=== PATIENT | male | born 1950 | race Caucasian/White ===

== ENCOUNTER → 2017-03-13 | Outpatient (REF) ==
[~2017-03-13] MED LIST: ACTOS 45MG45 MG/TAB PO; ACTOS45 MG PO; ADVAIR DISKUS 51 DSK IH; AMBIEN CR 12.12.5 MG PO; AMBIEN CR12.5 MG PO; ASPIRIN 81M81 MG/TA2 PO; ASPIRIN E.C. 8181 MG PO; ASTELIN NASAL S34 ML NAS; ASTELIN NASAL S34 ML NS; BYETTA 10M600 MCG/SY SC; BYETTA250 MCG/ML SC; CARDI-OMEGA1000 MG PO; CARDIZEM CD 24240 MG PO; CATAPRES 0.1MG0.1 MG PO; CELEBREX 200MG200 MG PO; CIALIS20 MG PO; CORTISPORIN OTI10 M1 OT; CYANOCOBAL1000 MCG/1 IM; DEPO-TESTOS200 MG/M1 IM; DILTIAZEM240 M1 PO; DIOVAN320 MG PO; FLEXERIL 1010 MG/TAB PO; FLEXERIL5 MG PO; FLONASE0.05 MG/AC NS; FLONASEALLERGY NAS; FLONASEALLERGY NS; FORTAMET500 M1 PO; GABAPENTIN100 M1 PO; GENTAMICIN180 MG/502 NS; GINKGO PO; HCTZ 25MG TAB25 MG PO; HCTZ 25MG25 MG PO; IPRATROPIUM BROM3 M1 IH; K-TAB10 PO; KLOR-CON 1010 MEQ PO; LASIX 20MG TABL20 MG PO; MEDROL4 MG; METFORMIN HCL500 M1 PO; MULTIPLE VITAMI1 CAP PO; MULTIPLE VITAMI1 TA5 PO; NEURONTIN100 MG/CAP; NEURONTIN100 MG/CAP PO; NITROLINGU0.4 MG/ACT SL; NITROMIST0.4 MG/Act SL; NORCO 325 MG-51 TAB PO; NORVASC 10MG10 MG PO; OMNARIS50 MCG/Act NS; OMNICEF 300MG300 MG PO; POTASSIUM CL 220 MEQ PO; PREDNISONE10 MG PO; PROVENTIL0.09 MG/A1 IH; PROVENTIL0.09 MG/Ac IH; QUALITY CHOI500 U/GM TP; QUESTRAN PO; RT ADVAIR 528 DISKUS IH; RT ALBUTER2.5 MG/0.5 IH; SINGULAIR 110 MG/TAB PO; SINGULAIR10 MG PO; SYNTHROID 0.10.15 MG PO; SYNTHROID0.1 MG/TAB PO; TENORETIC 50 501 TAB PO; TENORMIN50 MG PO; TESTOSTERONE25 MG/ML IM; TUSS PO; ULTRAM 50MG TAB50 MG PO; UREA20% TP; VITAMIN B11000 MCG/M IM; VITAMIN D 50,1.25 MG PO; ZETIA 10MG TAB10 MG PO; ZITHROMAX500 M2 PO; ZOCOR 20MG20 MG PO; ZOCOR 80MG80 MG PO; ZOFRAN 4MG T4 MG/TAB PO; [UNRECOGNIZED DRUG - SUPPLY]
[2017-03-13 18:50] LABS: PSA-TOTAL 0.63 ng/mL (0-4)
[2017-03-13 19:56] LABS: THYROID STIMULATING HORMONE 2.19 uIU/mL (0.465-4.680)
== END ==
LOC: ZLAB.WCH 18:02
PROVIDERS: Internal Medicine
DX: Z01.89 Encounter for other specified special examinations (principal)
CPT/HCPCS: G0103

== ENCOUNTER → 2017-12-20 | Outpatient (REF) | LOC: ZLAB.WCH 16:06 | DX: Z01.89 Encounter for other specified special examinations (principal) ==

== ENCOUNTER 2018-04-03 09:11 | Inpatient (IN) | payer MEDICARE, OTHER ==
[~2018-04-03] VITALS: Wt 137.5 kg
[2018-04-29] VITALS (10 sets, daily range): BP systolic 139–210; BP diastolic 58–103; PULSE 63–88; TEMP 97.4–98.3
[2018-04-29] MEDS ORDERED: COLCRYS0.6 MG PO (09:03)
[2018-04-29 09:09] LABS: BASO # 0.1 (0.0-0.2); BASO % 0.7 % (0.0-2.0); EOS # 0.2 (0.0-0.7); EOS % 2.9 % (0-4.0); GRAN # 5.6 (1.4-6.5); GRAN % 72.5 % (42.2-75.2); HEMATOCRIT 41.5 % (42.0-52.0); HEMOGLOBIN 13.3 g/dl (13.5-18.0); LYMPH # 0.8 (1.2-3.4); MEAN CELL VOLUME 94 fl (80.0-100.0); MEAN CORPUSCULAR HEMOGLOBIN 30 pg (27.0-31.0); MEAN CORPUSCULAR HGB CONC 32 g/dl (33.0-37.0); MEAN PLATELET VOLUME 9.6 fl (7.4-10.4); MONO % 12.4 % (1.7-9.3); PLATELET COUNT 207 K/mm3 (130-400); RED BLOOD COUNT 4.41 M/mm3 (4.20-5.60)
[2018-04-29] MEDS ORDERED: VICTOZA6 MG/ML SQ (09:10)
[2018-04-29 09:16] LABS: INR 1.2 (0.8-3.0); PROTHROMBIN TIME 13.8 SECONDS (9.7-12.8)
[2018-04-29] MEDS ORDERED: COZAAR100 MG PO (09:18)
[2018-04-29] MEDS ORDERED: TOPROL XL100 MG PO (09:19)
[2018-04-29 09:20] LABS: ALBUMIN 3.2 gm/dL (3.5-5.0); BILIRUBIN,TOTAL 0.5 mg/dL (0.0-1.0); CALCIUM 8.4 mg/dL (8.4-10.2); CREATININE, serum 0.99 mg/dL (0.66-1.25); MAGNESIUM 1.6 mg/dL (1.6-2.3); POTASSIUM 4.2 mmol/L (3.4-5.0); TOTAL PROTEIN 6.2 gm/dL (6.4-8.2)
[2018-04-29] MEDS ORDERED: CATAPRES-TTS 20.2 M1 TD (09:20)
[2018-04-29] MEDS ORDERED: ELIQUIS 5MG PO (13:35)
[2018-04-30] VITALS (7 sets, daily range): BP systolic 141–183; BP diastolic 68–89; PULSE 70–85; TEMP 97.6–98.2
[2018-04-30 06:42] LABS: BASO # 0.1 (0.0-0.2); EOS # 0.3 (0.0-0.7); GRAN # 3.8 (1.4-6.5); GRAN % 65.7 % (42.2-75.2); HEMATOCRIT 37.9 % (42.0-52.0); HEMOGLOBIN 11.8 g/dl (13.5-18.0); LYMPH # 0.8 (1.2-3.4); LYMPH % 13.3 % (20.0-51.0); MEAN CELL VOLUME 97 fl (80.0-100.0); MEAN CORPUSCULAR HEMOGLOBIN 30 pg (27.0-31.0); MEAN CORPUSCULAR HGB CONC 31 g/dl (33.0-37.0); MEAN PLATELET VOLUME 10.1 fl (7.4-10.4); MONO # 0.9 (0.1-0.6); MONO % 14.5 % (1.7-9.3); PLATELET COUNT 203 K/mm3 (130-400)
[2018-04-30 06:51] LABS: CALCIUM 7.8 mg/dL (8.4-10.2); CREATININE, serum 0.96 mg/dL (0.66-1.25); MAGNESIUM 1.6 mg/dL (1.6-2.3); POTASSIUM 4.2 mmol/L (3.4-5.0)
[2018-05-01 01:43] VITALS: BP 140/80; PULSE 77; TEMP 98.2
[2018-05-01 03:25] VITALS: BP 148/75; PULSE 63; TEMP 98.6
[2018-05-01 06:05] LABS: BASO # 0.1 (0.0-0.2); BASO % 0.8 % (0.0-2.0); EOS # 0.3 (0.0-0.7); EOS % 4.4 % (0-4.0); GRAN # 4.1 (1.4-6.5); GRAN % 64.3 % (42.2-75.2); HEMATOCRIT 38.6 % (42.0-52.0); HEMOGLOBIN 12.1 g/dl (13.5-18.0); LYMPH # 0.9 (1.2-3.4); LYMPH % 14.6 % (20.0-51.0); MEAN CELL VOLUME 95 fl (80.0-100.0); MEAN CORPUSCULAR HEMOGLOBIN 30 pg (27.0-31.0); MEAN CORPUSCULAR HGB CONC 31 g/dl (33.0-37.0); MONO % 15.4 % (1.7-9.3); PLATELET COUNT 198 K/mm3 (130-400); RED BLOOD COUNT 4.05 M/mm3 (4.20-5.60); REDCELL DISTRIBUTION WIDTH-CV 14.7 % (11.5-14.5)
[2018-05-01 06:10] LABS: CREATININE, serum 1.03 mg/dL (0.66-1.25); MAGNESIUM 1.7 mg/dL (1.6-2.3)
[2018-05-01 08:44] VITALS: BP 178/90; PULSE 73; TEMP 97.9
[2018-05-01] MEDS ORDERED: BETAPACE 80MG80 MG PO (11:06)
[2018-05-01] MEDS ORDERED: CEPHALEXIN500 M1 PO (11:09)
== END 2018-05-01 14:11 | disposition home or self-care (01) | DRG 261 ==
LOC: MEDICAL 04-29 08:22
PROVIDERS: Internal Medicine Cardiovascular Disease; Nurse Practitioner
PROC: 0JPT02Z Removal of Monitoring Device from Trunk Subcutaneous Tissue and Fascia, Open Approach (ICD-10-PCS; principal; 2018-04-29)
PROC: 0JH602Z Insertion of Monitoring Device into Chest Subcutaneous Tissue and Fascia, Open Approach (ICD-10-PCS; 2018-04-29)
DX: I48.0 Paroxysmal atrial fibrillation (principal); Z68.41 Body mass index [BMI] 40.0-44.9, adult; I10 Essential (primary) hypertension; J44.9 Chronic obstructive pulmonary disease, unspecified; E66.01 Morbid (severe) obesity due to excess calories
CPT/HCPCS: C1764; J0690; J2250; J3010

== ENCOUNTER → 2018-05-28 | Outpatient (REF) ==
[~2018-05-28] MED LIST changes: +ALDACTONE 25MG25 M1 PO; +BETAPACE 80MG80 MG PO; +CATAPRES-TTS 20.2 M1 TD; +CATAPRES-TTS 30.3 MG TD; +CEPHALEXIN500 M1 PO; +COLCRYS0.6 MG PO; +COZAAR100 MG PO; +ELIQUIS 5MG PO; +RT ADVAIR 228 DISKUS IH; +TIKOSYN0.5 MG PO; +TOPROL XL100 MG PO; +VICTOZA6 MG/ML SQ
[2018-05-28 10:12] LABS: PSA-TOTAL 0.53 ng/mL (0-4)
[2018-05-28 10:20] LABS: THYROID STIMULATING HORMONE 1.89 uIU/mL (0.465-4.680)
== END ==
LOC: ZLAB.WCH 09:07
PROVIDERS: Internal Medicine
DX: Z01.89 Encounter for other specified special examinations (principal)
CPT/HCPCS: G0103

== ENCOUNTER → 2018-10-25 | Outpatient (REF) | LOC: ZLAB.WCH 15:50 | DX: Z01.89 Encounter for other specified special examinations (principal) ==

== ENCOUNTER → 2018-11-26 | Outpatient (REF) | LOC: ZLAB.WCH 17:42 | DX: Z01.89 Encounter for other specified special examinations (principal) ==

== ENCOUNTER → 2019-02-19 | Outpatient (CLI) | payer MEDICARE, OTHER | LOC: COL.VAS 11:59 | DX: I10 Essential (primary) hypertension (principal) ==

== ENCOUNTER → 2019-02-24 | Outpatient (CLI) | payer MEDICARE, OTHER ==
[2019-02-24 13:41] LABS: CALCIUM 9.1 mg/dL (8.4-10.2); CREATININE, serum 1.41 (0.66-1.25); POTASSIUM 4.5 mmol/L (3.4-5.0)
== END ==
LOC: COL.RAD 13:03
PROVIDERS: Internal Medicine
DX: I10 Essential (primary) hypertension (principal); E11.9 Type 2 diabetes mellitus without complications; N28.9 Disorder of kidney and ureter, unspecified; I87.2 Venous insufficiency (chronic) (peripheral)
CPT/HCPCS: Q9967

== ENCOUNTER → 2019-10-14 | Outpatient (CLI) | payer MEDICARE, OTHER ==
[~2019-10-14] MED LIST changes: +TRULICITY1.5 MG/0.5 SQ; +ZYLOPRIM 100MG100 MG PO
--- NOTE | 2019-10-14 13:18 | NUR ---
pt forgot and took eliquis today. procedure rescheduled to sunday10/20/19 at 1300
== END ==
LOC: COL.RAD 12:17
DX: M48.061 Spinal stenosis, lumbar region without neurogenic claudication (principal)

== ENCOUNTER 2019-10-20 12:35 | Outpatient (CLI) | payer MEDICARE, OTHER ==
[~2019-10-20] VITALS: Ht 182.9 cm; Wt 139.4 kg
[~2019-10-20 12:35] MED LIST changes: -TRULICITY1.5 MG/0.5 SQ; -ZYLOPRIM 100MG100 MG PO
[2019-10-20] MEDS ORDERED: ZYLOPRIM 100MG100 MG PO (13:03)
[2019-10-20] MEDS ORDERED: TRULICITY1.5 MG/0.5 SQ (13:13)
[2019-10-20 13:14] VITALS: BP 201/103; PULSE 65
[2019-10-20 13:50] VITALS: BP 167/81; PULSE 59
[2019-10-20 14:10] VITALS: BP 148/77; PULSE 49
[2019-10-20 14:25] VITALS: BP 147/79; PULSE 80
[2019-10-20 14:40] VITALS: BP 152/78; PULSE 60
--- NOTE | 2019-10-20 15:54 | NUR ---
Discharge instructions given to pt.pt verbalizes understanding.
--- NOTE | 2019-10-20 16:14 | NUR ---
Pt escorted out via wheelchair by this nurse.
== END 2019-10-20 16:20 | disposition home or self-care (01) ==
LOC: COL.RAD 12:35
DX: M48.061 Spinal stenosis, lumbar region without neurogenic claudication (principal)
CPT/HCPCS: Q9965

== ENCOUNTER 2020-11-02 08:07 | Day surgery (SDC) | payer MEDICARE, OTHER ==
[~2020-11-02] VITALS: Ht 182.9 cm; Wt 124.8 kg
[2020-11-02] VITALS (11 sets, daily range): BP systolic 152–217; BP diastolic 59–117; PULSE 60–81; TEMP 97.2–98
[~2020-11-02 08:07] MED LIST changes: +LASIX 80MG TABL80 MG PO; +TRULICITY1.5 MG/0.5 SQ; +ZYLOPRIM 100MG100 MG PO
[2020-11-02 09:48] LABS: MEAN CELL VOLUME 101 fl (80.0-100.0); MEAN CORPUSCULAR HGB CONC 33 g/dl (33.0-37.0); MEAN PLATELET VOLUME 9.9 fl (7.4-10.4); PLATELET COUNT 227 K/mm3 (130-400); RED BLOOD COUNT 2.96 M/mm3 (4.20-5.60); REDCELL DISTRIBUTION WIDTH-CV 13.6 % (11.5-14.5)
[2020-11-02 09:50] LABS: HEMOGLOBIN 9.9 g/dl (13.5-18.0); MEAN CORPUSCULAR HEMOGLOBIN 33 pg (27.0-31.0)
[2020-11-02 09:51] LABS: HEMATOCRIT 29.9 % (42.0-52.0)
[2020-11-02 09:58] LABS: CALCIUM 9.5 mg/dL (8.4-10.2); CREATININE, serum 2.13 (0.66-1.25); POTASSIUM 4.5 mmol/L (3.4-5.0)
[2020-11-02 10:02] LABS: PROTHROMBIN TIME 11.1 SECONDS (9.7-12.8)
[2020-11-02] MEDS ORDERED: RT ADVAIR 228 DISKUS IH (10:13)
[2020-11-02] MEDS ORDERED: ZEBETA 5MG5 MG PO (10:22)
[2020-11-02] MEDS ORDERED: ZYRTEC 10MG10 MG PO (10:31)
[2020-11-02] MEDS ORDERED: COLESTID 1GM1 G PO (10:33)
[2020-11-02] MEDS ORDERED: VITAMIN B11000 MCG/M IM (10:33)
[2020-11-02] MEDS ORDERED: CARDIZEM CD 24240 MG PO (10:34)
[2020-11-02] MEDS ORDERED: NITROGLYCE0.4 MG/Ac2 TL (10:40)
[2020-11-02] MEDS ORDERED: SINGULAIR 110 MG/TAB PO (10:40)
[2020-11-02] MEDS ORDERED: DEPO-TESTOS100 MG/ML IM (10:43)
[2020-11-02] MEDS ORDERED: ULTRAM 50MG TAB50 MG PO (10:43)
[2020-11-02] MEDS ORDERED: AMOXICILLIN 50500 MG PO (10:44)
--- NOTE | 2020-11-02 11:36 | NUR ---
SEE MERGE DOCUMENTATION FOR MEDICATION ADMINISTRATION AND INTRA/POST PROCEDURE SEDATION ASSESMENTS.
--- NOTE | 2020-11-02 18:43 | NUR ---
Patient alert and cooperative on floor. Verbalizes understanding of all precautions discussed. Was able to get up and ambulate with standby assist and has eaten 100% of meals. records pain at 3/10 but declines any interventions. No other needs at this time.
--- NOTE | 2020-11-02 19:00 | NUR ---
Received report from Debora. Seen patient awake, sitting in bed. He has left arm sling. Dressing on his pacemaker site is clean, dry and intact. Call light within reach.
--- NOTE | 2020-11-02 20:20 | NUR ---
Assesment done. Applied new ice pack on his left chest. He denies pain but reports discomfort on his pacemaker site. He refuses pain medicine and states it's tolerable. Informed him to maintain his ice pack to help relieve with the discomfort. Lungs are clear. Call light within reach.
[2020-11-03 02:59] VITALS: BP 162/78; PULSE 66; TEMP 98.1
--- NOTE | 2020-11-03 06:04 | NUR ---
Patient had uneventful night. He was using his bipap while asleep. Ice pack was replaced frequently. His pacemaker site dressing is clean, dry and intact. He reports pain on the site this morning with pain score of 4/10. Celebrex was given. Maintained arm sling.
[2020-11-03 06:23] LABS: BASO # 0.1 (0.0-0.2); BASO % 0.9 % (0.0-2.0); EOS # 0.2 (0.0-0.7); EOS % 3.5 % (0-4.0); GRAN # 4.3 (1.4-6.5); GRAN % 67.5 % (42.2-75.2); LYMPH # 0.8 (1.2-3.4); LYMPH % 12.4 % (20.0-51.0); MEAN CELL VOLUME 104 fl (80.0-100.0); MEAN CORPUSCULAR HGB CONC 31 g/dl (33.0-37.0); MEAN PLATELET VOLUME 10.1 fl (7.4-10.4); MONO % 15.1 % (1.7-9.3); PLATELET COUNT 214 K/mm3 (130-400); RED BLOOD COUNT 2.78 M/mm3 (4.20-5.60); REDCELL DISTRIBUTION WIDTH-CV 13.5 % (11.5-14.5)
[2020-11-03 06:24] LABS: HEMOGLOBIN 9.1 g/dl (13.5-18.0); MEAN CORPUSCULAR HEMOGLOBIN 33 pg (27.0-31.0)
[2020-11-03 06:38] LABS: ALBUMIN 3.1 gm/dL (3.5-5.0); BILIRUBIN,TOTAL 0.3 mg/dL (0.0-1.0); CALCIUM 8.8 mg/dL (8.4-10.2); CREATININE, serum 2.4 (0.66-1.25); POTASSIUM 4.4 mmol/L (3.4-5.0); TOTAL PROTEIN 6.1 gm/dL (6.4-8.2)
[2020-11-03 07:37] VITALS: BP 197/78; PULSE 64; TEMP 97.3
--- NOTE | 2020-11-03 07:50 | NUR ---
Shift assessment complete. Sitting on side of bed finishing breakfast upon entry. NC at 3 lpm O2, reports baseline. Heart RRR. Lungs CTA. A&Ox4. Moderate pain to incision site, reports adequate relief from tramadol. Left chest incisions covered by gauze and paper tape, CDI. Denies needs. Call light in reach.
[2020-11-03 09:34] VITALS: BP 183/84
--- NOTE | 2020-11-03 09:45 | NUR ---
Initial visit; Patient thanked Step Down Nurse for looking in on him. He is doing well and will be discharged soon.
--- NOTE | 2020-11-03 09:57 | NUR ---
and KAMRAN Starks notified pt's BP 183/84. Stated will continue to monitor for now.
[2020-11-03] MEDS ORDERED: CEPHALEXIN500 M1 PO (10:41)
--- NOTE | 2020-11-03 12:55 | NUR ---
D/C teaching discussed w/pt and . All questions answered. INT to left wrist removed w/o s/s complication. Pt off unit via WC w/ and medical community resource consultant at this time, all belongings in tow.
== END 2020-11-03 12:56 | disposition home or self-care (01) ==
LOC: COL.CAR 08:07 → MEDICAL 14:32 → COL.CAR 11-03 12:56
PROVIDERS: Internal Medicine Cardiovascular Disease
DX: I49.5 Sick sinus syndrome (principal); I48.0 Paroxysmal atrial fibrillation; G89.29 Other chronic pain; E78.2 Mixed hyperlipidemia; E11.9 Type 2 diabetes mellitus without complications; I87.2 Venous insufficiency (chronic) (peripheral); G47.33 Obstructive sleep apnea (adult) (pediatric); J43.9 Emphysema, unspecified; E11.21 Type 2 diabetes mellitus with diabetic nephropathy; M19.90 Unspecified osteoarthritis, unspecified site; G47.30 Sleep apnea, unspecified; Z88.8 Allergy status to other drugs, medicaments and biological substances; Z79.899 Other long term (current) drug therapy; Z79.82 Long term (current) use of aspirin; Z20.822 Contact with and (suspected) exposure to COVID-19; Z95.818 Presence of other cardiac implants and grafts; Z99.89 Dependence on other enabling machines and devices; Z79.01 Long term (current) use of anticoagulants; Z79.84 Long term (current) use of oral hypoglycemic drugs; Z79.890 Hormone replacement therapy
CPT/HCPCS: OP; C1769; C1785; C1887; C1894; C1898; J0690; J2250; J2405; J3010; J7030

== ENCOUNTER 2020-11-17 12:55 | Day surgery (SDC) | payer MEDICARE, OTHER ==
[2020-11-17] VITALS (9 sets, daily range): BP systolic 143–192; BP diastolic 54–90; PULSE 48–64; TEMP 97.7–98.5
[~2020-11-17] VITALS: Ht 180.3 cm; Wt 129.5 kg
[~2020-11-17 12:55] MED LIST changes: +AMOXICILLIN 50500 MG PO; +COLESTID 1GM1 G PO; +DEPO-TESTOS100 MG/ML IM; +NITROGLYCE0.4 MG/Ac2 TL; +ZEBETA 5MG5 MG PO; +ZYRTEC 10MG10 MG PO
[2020-11-17 14:13] LABS: PROTHROMBIN TIME 10.7 SECONDS (9.7-12.8)
[2020-11-17 14:14] LABS: CALCIUM 8.2 mg/dL (8.4-10.2); CREATININE, serum 2.05 (0.66-1.25); POTASSIUM 4.8 mmol/L (3.4-5.0)
[2020-11-17 14:35] LABS: MEAN CELL VOLUME 102 fl (80.0-100.0); MEAN CORPUSCULAR HGB CONC 33 g/dl (33.0-37.0); MEAN PLATELET VOLUME 10.5 fl (7.4-10.4); PLATELET COUNT 260 K/mm3 (130-400); RED BLOOD COUNT 2.83 M/mm3 (4.20-5.60); REDCELL DISTRIBUTION WIDTH-CV 13.8 % (11.5-14.5)
[2020-11-17 14:36] LABS: HEMATOCRIT 28.9 % (42.0-52.0); HEMOGLOBIN 9.5 g/dl (13.5-18.0); MEAN CORPUSCULAR HEMOGLOBIN 34 pg (27.0-31.0)
--- NOTE | 2020-11-17 16:08 | NUR ---
pt arrived to floor, pt concerned about eating, pt assessed, pt has generalized edema, red ble, pt on 2l satting 100%, on 3l at home, will discuss with cardiology due to pt history of copd, admission assessment performed, pt reports 4/10 pain in back, ice pack placed on l chest site, pulses strong
[2020-11-17] MEDS ORDERED: TIKOSYN0.125 MG PO (16:40)
[2020-11-17] MEDS ORDERED: LASIX 40MG TABL40 MG PO (16:41)
[2020-11-17] MEDS ORDERED: ZETIA 10MG TAB10 MG PO (16:41)
--- NOTE | 2020-11-17 18:03 | NUR ---
PT DISCONNECTED FROM POST OP VITALS, PRESSURES IN 150-160'S SYSTOLIC, PT OVERALL VERY PLEASANT, REPORTS DISCOMFORT FROM ARTHRITIS, ICE PACK ON LCHEST, PT DC FROM PRE OP FLUIDS, WILL START LASIX TOMORROW AND BP MEDS TOMORROW, NO OTHER NEEDS.
--- NOTE | 2020-11-17 18:10 | NUR ---
PT REQUESTED A WALKER, SOCIAL WORK REFERRAL PLACED
--- NOTE | 2020-11-17 21:05 | NUR ---
I rec[facility] Patient was sitting at the side of the bed speaking to family on the phone. He denies pain, denies shortness of breath, denies nausea. He has no complaints. He is very delightful and very positive. His oxygen saturation is 96 on 2L NC and he stated he is feeling comfortable.
[2020-11-18 04:51] VITALS: BP 161/75; PULSE 59; TEMP 97.6
[2020-11-18 06:36] LABS: BASO # 0.1 (0.0-0.2); BASO % 0.6 % (0.0-2.0); EOS # 0.4 (0.0-0.7); EOS % 5.1 % (0-4.0); GRAN # 5.3 (1.4-6.5); GRAN % 67.9 % (42.2-75.2); LYMPH # 1.1 (1.2-3.4); LYMPH % 13.8 % (20.0-51.0); MEAN CORPUSCULAR HGB CONC 31 g/dl (33.0-37.0); MEAN PLATELET VOLUME 10.4 fl (7.4-10.4); MONO # 0.9 (0.1-0.6); PLATELET COUNT 234 K/mm3 (130-400); RED BLOOD COUNT 3.01 M/mm3 (4.20-5.60); REDCELL DISTRIBUTION WIDTH-CV 13.9 % (11.5-14.5)
[2020-11-18 06:46] LABS: CALCIUM 8.3 mg/dL (8.4-10.2); CREATININE, serum 2.05 (0.66-1.25); POTASSIUM 4.6 mmol/L (3.4-5.0)
[2020-11-18 06:50] LABS: HEMATOCRIT 32.4 % (42.0-52.0); HEMOGLOBIN 9.9 g/dl (13.5-18.0); MEAN CELL VOLUME 108 fl (80.0-100.0); MEAN CORPUSCULAR HEMOGLOBIN 33 pg (27.0-31.0)
[2020-11-18 07:11] VITALS: BP 130/71; PULSE 61; TEMP 97.4
[2020-11-18 08:20] VITALS: BP 163/74; PULSE 75; TEMP 98
--- NOTE | 2020-11-18 08:30 | NUR ---
PT PLEASANT, AOX4, REPORTS PAIN 5/10, ICE PACK PLACED ON L CHEST PACER SITE. PACEMAKER DOWNLOADED AND REPORT PLACED ON CHART, VITALS REVIWED, ASSESSMENT PERFORMED, FRESH ICE WATER BROUGHT IN, CALL LIGHT AT BEDSIDE, PT EAGER FOR DISCHARGE.
[2020-11-18] MEDS ORDERED: CEPHALEXIN500 M1 PO (10:24)
[2020-11-18 12:50] VITALS: BP 178/79; PULSE 72; TEMP 97.5
--- NOTE | 2020-11-18 13:08 | NUR ---
when obtaining vital signs and BS a hematoma was noted above pacer site. site was soft, called kelvin angeles about hematoma and high bp. clonidine given and ice placed on hematoma site. will watch for a couple hours to determine if site is actively bleeding. in room at bedside.
--- NOTE | 2020-11-18 14:03 | NUR ---
HEMATOMA APPEARS TO HAVE GONE DOWN IN HEIGHT AND APPEARS TO HAVE SPREAD BACK TO THE SHOULDER SOME.
--- NOTE | 2020-11-18 14:07 | NUR ---
Primary nurse was assisted with [id number] patient care by [employer] student Maribell Rivero and [employer] instructor Katherine Redding MSN, RN.
--- NOTE | 2020-11-18 14:45 | NUR ---
assessed hematoma, appears the same size no changes, notified bridgette warren of cardiology. stable for discharge, holding eliquis until sunday, aspirin ok per cardiology instruction. discharge instructions given, educated on shower safety with pacer site, educated on movement restriction with L arm, educated on s/s of infection, educated on antibiotic administration and side effects. IV removed from LW. no other needs.
--- NOTE | 2020-11-18 15:28 | NUR ---
Assistant Store Manager Operations met with patient to discuss discharge planning. Patient lives in [place] with his , Alesha and sees Dr. Acosta for primary care. Patient states he has an appointment with Dr. Acosta next week. Patient obtains most medications from [facility], which are mailed to his home. Patient also utilizes [facility] as needed. Patient has a rollator, cane, and wheelchair at home. Patient reports independence with ADLS and plans to return home upon discharge, which will be this afternoon. Patient is interested in obtaining a front wheeled walker. SW contacted KAMRAN Lock who advised Dr. Montgomery would like patient to follow up with Dr. Acosta for the walker if he is stable for discharge. Patient is agreeable to this plan. Discharge Plan: Home with .
== END 2020-11-18 15:15 | disposition home or self-care (01) ==
LOC: EU 12:55 → UNDOADMOB 12:55 → SDCO 12:55 → MEDICAL 16:09 → EU 16:09 → MEDICAL 11-18 15:15 → SDCO 11-18 15:15
PROVIDERS: Internal Medicine Cardiovascular Disease
DX: T82.110A Breakdown (mechanical) of cardiac electrode, initial encounter (principal); I48.0 Paroxysmal atrial fibrillation; G89.29 Other chronic pain; I87.2 Venous insufficiency (chronic) (peripheral); I10 Essential (primary) hypertension; I49.5 Sick sinus syndrome; G47.33 Obstructive sleep apnea (adult) (pediatric); E66.01 Morbid (severe) obesity due to excess calories; M19.90 Unspecified osteoarthritis, unspecified site; J43.9 Emphysema, unspecified; E11.40 Type 2 diabetes mellitus with diabetic neuropathy, unspecified; E07.9 Disorder of thyroid, unspecified; E78.2 Mixed hyperlipidemia; Z95.818 Presence of other cardiac implants and grafts; Z99.89 Dependence on other enabling machines and devices; Z88.8 Allergy status to other drugs, medicaments and biological substances; Z79.82 Long term (current) use of aspirin; Z79.899 Other long term (current) drug therapy; Z79.890 Hormone replacement therapy; Z79.52 Long term (current) use of systemic steroids; Z79.01 Long term (current) use of anticoagulants
CPT/HCPCS: J0690; J2250; J3010; J7030

== ENCOUNTER 2020-11-26 13:31 | Emergency (ER) | payer MEDICARE, OTHER ==
[~2020-11-26] VITALS: Ht 180.3 cm; Wt 128.6 kg
[~2020-11-26 13:31] MED LIST changes: +LASIX 40MG TABL40 MG PO; +TIKOSYN0.125 MG PO
[2020-11-26 13:39] VITALS: TEMP 97.9
[2020-11-26 14:36] LABS: BASO # 0.1 (0.0-0.2); BASO % 0.9 % (0.0-2.0); EOS # 0.3 (0.0-0.7); EOS % 2.9 % (0-4.0); GRAN # 6.6 (1.4-6.5); HEMATOCRIT 32.7 % (42.0-52.0); HEMOGLOBIN 10.5 g/dl (13.5-18.0); LYMPH # 0.8 (1.2-3.4); MEAN CELL VOLUME 102 fl (80.0-100.0); MEAN CORPUSCULAR HEMOGLOBIN 33 pg (27.0-31.0); MEAN CORPUSCULAR HGB CONC 32 g/dl (33.0-37.0); MEAN PLATELET VOLUME 9.5 fl (7.4-10.4); MONO # 1.2 (0.1-0.6); MONO % 13.6 % (1.7-9.3); PLATELET COUNT 283 K/mm3 (130-400); REDCELL DISTRIBUTION WIDTH-CV 13.2 % (11.5-14.5)
[2020-11-26 14:41] LABS: ALBUMIN 3.5 gm/dL (3.5-5.0); BILIRUBIN,TOTAL 0.3 mg/dL (0.0-1.0); CALCIUM 9.2 mg/dL (8.4-10.2); CREATININE, serum 2.16 (0.66-1.25); TOTAL PROTEIN 6.9 gm/dL (6.4-8.2)
[2020-11-26 14:58] LABS: TROPONIN-I 0.037 ng/mL (0.000-0.035)
[2020-11-26 16:19] VITALS: BP 171/90; PULSE 81
== END 2020-11-26 15:50 | disposition home or self-care (01) ==
LOC: COL.ER 13:31
PROVIDERS: Physician Assistant
DX: R22.32 Localized swelling, mass and lump, left upper limb (principal); E11.9 Type 2 diabetes mellitus without complications; I10 Essential (primary) hypertension; I48.91 Unspecified atrial fibrillation; J44.9 Chronic obstructive pulmonary disease, unspecified; E78.5 Hyperlipidemia, unspecified; G47.33 Obstructive sleep apnea (adult) (pediatric); E66.01 Morbid (severe) obesity due to excess calories; Z88.8 Allergy status to other drugs, medicaments and biological substances; Z95.0 Presence of cardiac pacemaker; Z79.84 Long term (current) use of oral hypoglycemic drugs; Z79.51 Long term (current) use of inhaled steroids; Z79.82 Long term (current) use of aspirin; Z79.01 Long term (current) use of anticoagulants; Z79.899 Other long term (current) drug therapy

== ENCOUNTER → 2021-03-11 | Outpatient (CLI) | payer MEDICARE, OTHER | LOC: COL.RAD 08:59 | DX: M25.561 Pain in right knee (principal); M25.562 Pain in left knee | CPT/HCPCS: A9503 ==

== ENCOUNTER 2022-01-06 16:29 | Observation (INO) | payer MEDICARE, OTHER ==
[~2022-01-06] VITALS: Ht 182.9 cm; Wt 124.3 kg
[2022-01-06 17:59] LABS: BASO # 0.1 K/mm3 (0.0-0.2); BASO % 0.8 % (0.0-2.0); EOS # 0.2 K/mm3 (0.0-0.7); EOS % 2.2 % (0.0-4.0); GRAN # 5.8 K/mm3 (1.4-6.5); GRAN % 75.1 % (42.2-75.2); LYMPH # 0.7 K/mm3 (1.2-3.4); LYMPH % 8.6 % (20.0-51.0); MEAN CELL VOLUME 92 fl (80.0-100.0); MEAN CORPUSCULAR HGB CONC 33 g/dl (33.0-37.0); MEAN PLATELET VOLUME 9.7 fl (7.4-10.4); MONO % 12.9 % (1.7-9.3); PLATELET COUNT 228 K/mm3 (130-400); RED BLOOD COUNT 3.19 M/mm3 (4.20-5.60); REDCELL DISTRIBUTION WIDTH-CV 14.7 % (11.5-14.5)
[2022-01-06 18:00] LABS: HEMATOCRIT 29.3 % (42.0-52.0); HEMOGLOBIN 9.6 g/dl (13.5-18.0); MEAN CORPUSCULAR HEMOGLOBIN 30 pg (27-31)
[2022-01-06 18:16] LABS: ALBUMIN 3.2 gm/dL (3.4-4.8); BILIRUBIN,TOTAL 0.4 mg/dL (0.2-1.2); CALCIUM 9.1 mg/dL (8.4-10.2); CREATININE, serum 4.67 mg/dL (0.72-1.25); POTASSIUM 5.2 mmol/L (3.5-4.5); TOTAL PROTEIN 6.8 gm/dL (6.2-8.1)
[2022-01-06 19:11] LABS: COLLECTION METHOD CLEAN CATCH
[2022-01-06 19:17] LABS: PH 6 (5-8); SQUAMOUS EPITHELIAL None Seen /hpf (0-10); URINE APPEARANCE Clear (CLEAR/HAZY); URINE BACTERIA None Seen /hpf (NONE SEEN); URINE BILIRUBIN Negative (NEGATIVE); URINE BLOOD Negative (NEGATIVE); URINE COLOR Straw (YELLOW); URINE GLUCOSE 3+ (NEGATIVE); URINE KETONE Negative (NEGATIVE); URINE LEUKOCYTE ESTERASE Negative (NEGATIVE); URINE NITRATE Negative (NEGATIVE); URINE PROTEIN(semi-quant) 2+ (NEGATIVE); URINE RBC None Seen /hpf (0-2); URINE UROBILINOGEN Negative (NEGATIVE)
[2022-01-06] MEDS ORDERED: LASIX 40MG TABL40 MG PO (22:15)
[2022-01-06] MEDS ORDERED: ULTRAM 50MG TAB50 MG PO (22:16)
[2022-01-06] MEDS ORDERED: ZETIA 10MG TAB10 MG PO (22:16)
[2022-01-06] MEDS ORDERED: RT ADVAIR 228 DISKUS IH (22:24)
[2022-01-06] MEDS ORDERED: TIKOSYN0.125 MG PEG (23:30)
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
[2022-01-07 00:36] VITALS: BP 165/84; PULSE 75; TEMP 97.5
[2022-01-07 03:41] VITALS: BP 155/77; PULSE 73; TEMP 98.2
--- NOTE | 2022-01-07 05:21 | NUR ---
PT. SPENT THE NIGHT SLEEPING. NO NEEDS THROUGHOUT THE NIGHT.
[2022-01-07 06:46] LABS: BASO # 0.1 K/mm3 (0.0-0.2); BASO % 0.7 % (0.0-2.0); EOS # 0.4 K/mm3 (0.0-0.7); GRAN # 4.9 K/mm3 (1.4-6.5); GRAN % 67.1 % (42.2-75.2); LYMPH # 0.9 K/mm3 (1.2-3.4); LYMPH % 11.7 % (20.0-51.0); MEAN CELL VOLUME 93 fl (80.0-100.0); MEAN CORPUSCULAR HGB CONC 32 g/dl (33.0-37.0); MONO # 1.1 K/mm3 (0.1-0.6); MONO % 15.2 % (1.7-9.3); PLATELET COUNT 247 K/mm3 (130-400); RED BLOOD COUNT 3.35 M/mm3 (4.20-5.60); REDCELL DISTRIBUTION WIDTH-CV 14.6 % (11.5-14.5)
[2022-01-07 06:56] LABS: HEMOGLOBIN 9.9 g/dl (13.5-18.0); MEAN CORPUSCULAR HEMOGLOBIN 30 pg (27-31)
[2022-01-07 07:08] LABS: CALCIUM 9.5 mg/dL (8.4-10.2); CREATININE, serum 3.96 mg/dL (0.72-1.25); POTASSIUM 4.5 mmol/L (3.5-4.5)
[2022-01-07 08:00] VITALS: BP 147/58; PULSE 88; TEMP 97.8
[2022-01-07 11:36] VITALS: BP 145/67; PULSE 79; TEMP 98
--- NOTE | 2022-01-07 12:16 | NUR ---
Initial visit; Patient thanked Chaplaalexandria for stopping by his room and letting him know of the availability of Spiritual Care at our hospital. Patient was with Physical Therapist just coming into his room so Chaplian wished him well and God's blessings.
--- NOTE | 2022-01-07 13:34 | NUR ---
Received report from night supervisor. Patient alert and oriented x3. VSS. Patient denies any pain at this time. Assessment performed. Am meds administered. Patient on 3L NC. Patient on 1500 FR. Patient aware of FR and keeping track. IV to R AC flushes well. Call light within reach.
[2022-01-07 15:57] VITALS: BP 137/78; PULSE 80; TEMP 97.8
--- NOTE | 2022-01-07 17:55 | NUR ---
Patient reports pain in lower back and hip, requests tylenol and flexeril. Patient reports pain 8/10.
--- NOTE | 2022-01-07 18:56 | NUR ---
TX GIVEN VIA MOUTHPIECE, TOLERATED WELL. PLACED BACK ON 3L NC AFTER TX.
--- NOTE | 2022-01-07 21:15 | NUR ---
Pt. sitting up at bedside. Pt. is A&OX3, assessment complete. INT to rt. ac patent. Tele noted. O2 3L nc at this time. Pt. reports back pain at a 5 on pain scale, giving scheduled meds. Wound noted to lt. second toe. Pt. denies further needs, call light within reach.
[2022-01-07 21:37] VITALS: BP 176/85; PULSE 86; TEMP 97.3
[2022-01-08 00:16] VITALS: BP 154/74; PULSE 72; TEMP 97.3
[2022-01-08 04:21] VITALS: BP 145/70; PULSE 72; TEMP 97.8
[2022-01-08 07:26] LABS: CALCIUM 9.1 mg/dL (8.4-10.2); CREATININE, serum 3.46 mg/dL (0.72-1.25); MAGNESIUM 2.7 mg/dL (1.6-2.6); POTASSIUM 4.8 mmol/L (3.5-4.5)
[2022-01-08 08:10] VITALS: BP 137/55; PULSE 79; TEMP 98.2
--- NOTE | 2022-01-08 14:27 | NUR ---
Discharge instructions provided. Instructed patient on follow up appointments, labs. Patient denied any questions or concerns. Patient's IV DC'd. Patient escorted out via wheelchair.
== END 2022-01-08 13:31 | disposition home or self-care (01) ==
LOC: COL.ER 16:29 → SURG 19:53 → EDBEDREQ 21:34 → SURG 01-08 13:31
PROVIDERS: Physician Assistant; Student in an Organized Health Care Education/Training Program; ADMIT Internal Medicine
DX: I13.0 Hypertensive heart and chronic kidney disease with heart failure and stage 1 through stage 4 chronic kidney disease, or unspecified chronic kidney disease (principal); I50.9 Heart failure, unspecified; N18.9 Chronic kidney disease, unspecified; N17.9 Acute kidney failure, unspecified; E11.22 Type 2 diabetes mellitus with diabetic chronic kidney disease; I48.91 Unspecified atrial fibrillation; I87.2 Venous insufficiency (chronic) (peripheral); M19.90 Unspecified osteoarthritis, unspecified site; E78.5 Hyperlipidemia, unspecified; J44.9 Chronic obstructive pulmonary disease, unspecified; G47.30 Sleep apnea, unspecified; E03.9 Hypothyroidism, unspecified; R09.02 Hypoxemia; Z79.84 Long term (current) use of oral hypoglycemic drugs; Z20.822 Contact with and (suspected) exposure to COVID-19; Z79.899 Other long term (current) drug therapy; Z95.0 Presence of cardiac pacemaker
CPT/HCPCS: 99239; J1815; J7030

== ENCOUNTER 2024-02-04 20:20 | Inpatient (IN) | payer MEDICARE, OTHER ==
[~2024-02-04] VITALS: Ht 182.9 cm; Wt 115.3 kg
[~2024-02-04 20:20] MED LIST changes: +B COMPLEX #11 TA1 PO; +BACTROBAN15 GM TOP; +CARAFATE 1GM1 G PO; +COZAAR 50MG50 MG/TAB PO; +CRESTOR20 MG PO; +FARXIGA5 PO; +INCRUSE EL62.5 MCG/A IH; +NATURAL IRON65 MG PO; +PHARMASSURE CHE30 MG PO; +PROTONIX 40MG T40 MG PO; +SENOKOT S 50 MG1 TAB PO; +SYNTHROID0.125 MG/T PO; +TYLENOL 500MG500 MG PO; +UREA20% TOP; +VITAMIN D362.5 MC1 PO; +VITAMINC1000TA PO; +WIXELA 250-501 EACH IH; +ZAROXOLYN5 MG PO
[2024-02-04] MEDS ORDERED: Acetaminophen 500 MG TAB PO ONE (20:45)
[2024-02-04] MEDS ORDERED: LR 1,000 ML IV ONE (20:45)
[2024-02-04 21:15] LABS: HEMOGLOBIN 12.6 g/dl (13.5-18.0); MEAN CELL VOLUME 91 fl (80.0-100.0); MEAN CORPUSCULAR HEMOGLOBIN 29 pg (27-31); MEAN CORPUSCULAR HGB CONC 32 g/dl (33.0-37.0); MEAN PLATELET VOLUME 9.9 fl (7.4-10.4); PLATELET COUNT 209 K/mm3 (130-400); RED BLOOD COUNT 4.39 M/mm3 (4.20-5.60); REDCELL DISTRIBUTION WIDTH-CV 16.3 % (11.5-14.5)
[2024-02-04 21:25] LABS: INR 1.4 (0.8-3.0); PROTHROMBIN TIME 15.7 SECONDS (9.7-12.8)
[2024-02-04 21:36] LABS: BILIRUBIN,TOTAL 0.4 mg/dL (0.2-1.2); CALCIUM 9.8 mg/dL (8.4-10.2); CREATININE, serum 4.01 mg/dL (0.72-1.25); POTASSIUM 4.5 mEq/L (3.5-4.5)
[2024-02-04 21:38] LABS: ARTERIAL BLD GAS O2 SATURATION 97.2 % (92-100); ARTERIAL BLD GAS TCO2 CT 23.8; ARTERIAL BLOOD GAS BASE EXCESS -0.6 (-2-2); ARTERIAL BLOOD GAS HCO3 22.8 meq/L (22-26); ARTERIAL BLOOD GAS PCO2 33.5 mmHg (35-45); ARTERIAL BLOOD GAS PO2 95.7 mmHg (80-100); ARTERIAL BLOOD GAS pH 7.45 (7.35-7.45)
[2024-02-04 21:43] LABS: LYMPHOCYTE 2 % (20.0-51.0); NEUTROPHILS 88 % (42.0-75.2)
[2024-02-04 22:52] LABS: TROPONIN-I 0.061 ng/mL (0.00-0.033)
[2024-02-04] MEDS ORDERED: Ondansetron 4 MG/2 ML VIAL IV PRN (23:15)
[2024-02-04] MEDS ORDERED: LR 1,000 ML IV SCH (23:15)
[2024-02-04] MEDS ORDERED: Acetaminophen 325 MG TAB PO PRN (23:15)
[2024-02-04] MEDS ORDERED: Polyethylene Glycol 3350 17 GM PDS PO PRN (23:15)
[2024-02-04] MEDS ORDERED: Docusate Sodium 100 MG CAP PO PRN (23:15)
[2024-02-04] MEDS ORDERED: Glucagon 1 MG VIAL IM PRN (23:45)
[2024-02-04] MEDS ORDERED: Dextrose 50% Water 25 GM/50 ML SYRINGE IV PRN (23:45)
[2024-02-04] MEDS ORDERED: Dextrose (Glucose) 15 GM (4 x 3.75 GM) Chewable TABLET PACK PO PRN (23:45)
[2024-02-05] MEDS ORDERED: Albuterol/Ipratropium 3 MG-0.5 MG/3 ML Neb Soln IH PRN (00:30)
[2024-02-05] MEDS ORDERED: Cetirizine 10 MG TAB PO PRN (01:00)
--- NOTE | 2024-02-05 01:50 | NUR ---
REPORT RECIEVED FROM HIWOT ANDREW IN ICU.
--- NOTE | 2024-02-05 01:59 | NUR ---
PT WAS ADMITTED TO ICU 4 FOR HYPERTHERMIA. PT WAS TRYING TO CATCH HIS CAT OUTSIDE IN THE HEAT SOMETIME AFER 1700 ON 02/03. PT WAS AFEBRILE ON ADMISSION TO THE ICU. PT IS MEDICAL STATUS. PT WILL BE MOVED TO ROOM 353. REPORT CALLED TO KAMRAN HEAD. PT NOTIFIED OF TRANSFER. DR NOLASCO ON THE UNIT. REPORTED TROPONIN OF 0.081 TO HER AT 0202. PT TO REMAIN NPO FOR POSSIBLE CARDIAC INTERVENTION. STABLE ON ROUNDS. NO SIGN OF DISTRESS AT THIS TIME. RESPIRATIONS EVEN AND UNLABORED. CONTINUE PLAN OF CARE.
[2024-02-05 02:25] VITALS: BP 146/79; PULSE 81; TEMP 98.1
--- NOTE | 2024-02-05 02:25 | NUR ---
MALE PATIENT ARRIVED TO ROOM #353 VIA WHEELCHAIR FROM ICU. PATIENT ALERT AND ORIENTED X4. PATIENT ON 5 LITERS OF OXYGEN VIA NC. PATIENT GAIT STEADY. INT TO RIGHT AC AND LEFT FOREARM INTACT WITH NO COMPLICATIONS NOTED. TELEMETRY INTACT. ALLERGIES, MEDICATION REC, AND PHARMACY REVIEW WITH PATIENT AT THIS TIME. LR STARTED AND INFUSING INTO LEFT FOREAR WITH NO COMPLICATIONS NOTED. PATIENT DENIES ANY NEEDS AT THIS TIME. PATIENT VERBALIZED UNDERSTANDING OF BED CONTROLS AND CALL LIGHT. BED IN LOW POSITION WITH WHEELS LOCKED WITH RAILS UP X2 AND CALL LIGHT WITHIN REACH.
--- NOTE | 2024-02-05 02:36 | NUR ---
PT TRANSFERED TO ROOM 353 VIA WHEELCHAIR. HOME MEDICATIONS AND CELL PHONE WITH PATIENT. TRANSPORTED ON 6L OXYGEN VIA NC. PT TOLERATED TRANSFER WELL. NO SIGN OF DISTRESS AT TIME OF TRANSPORT
[2024-02-05 03:26] LABS: HEMOGLOBIN 11.6 g/dl (13.5-18.0); MEAN CELL VOLUME 89 fl (80.0-100.0); MEAN CORPUSCULAR HEMOGLOBIN 29 pg (27-31); MEAN CORPUSCULAR HGB CONC 32 g/dl (33.0-37.0); MEAN PLATELET VOLUME 9.6 fl (7.4-10.4); PLATELET COUNT 194 K/mm3 (130-400); RED BLOOD COUNT 4.04 M/mm3 (4.20-5.60); REDCELL DISTRIBUTION WIDTH-CV 16.4 % (11.5-14.5)
[2024-02-05 03:29] LABS: HEMATOCRIT 36.1 % (42.0-52.0)
[2024-02-05 03:53] LABS: ANISOCYTOSIS 1+; BAND 3 % (0-10); LYMPHOCYTE 7 % (20.0-51.0); NEUTROPHILS 72 % (42.0-75.2); PLATELET ESTIMATE NORMAL (NORMAL)
[2024-02-05 03:54] LABS: HYPOCHROMIA 1+
[2024-02-05 03:56] LABS: CALCIUM 9.3 mg/dL (8.4-10.2); CREATININE, serum 4.06 mg/dL (0.72-1.25); POTASSIUM 4.6 mEq/L (3.5-4.5)
--- NOTE | 2024-02-05 04:52 | NUR ---
NOTIFIED DR. Daniel NOLASCO OF ELEVATED HIGH CRITICAL TROPONIN OF 0.089. NO NEW ORDERS RECIEVED.
[2024-02-05] MEDS ORDERED: Sucralfate 1 G TAB PO SCH (07:30)
[2024-02-05 07:44] VITALS: BP 157/71; PULSE 74; TEMP 97.6
[2024-02-05] MEDS ORDERED: Insulin Lispro (HumaLOG) SQ SCH (08:00)
[2024-02-05] MEDS ORDERED: Pantoprazole 40 MG in NS 10 ML IV SCH (09:00)
[2024-02-05] MEDS ORDERED: Apixaban 2.5 MG TABLET PO SCH (09:00)
[2024-02-05] MEDS ORDERED: Montelukast 10 MG TAB PO SCH (09:00)
[2024-02-05] MEDS ORDERED: amLODIPine 10 MG TAB PO SCH (09:00)
[2024-02-05] MEDS ORDERED: Losartan 50 MG TAB PO SCH (09:00)
[2024-02-05] MEDS ORDERED: Fluticasone Nasal 50 MCG/Spray 16 GM BOTTLE NS SCH (09:00)
[2024-02-05] MEDS ORDERED: Ezetimibe 10 MG TAB PO SCH (09:00)
--- NOTE | 2024-02-05 10:00 | NUR ---
Initial visit; Patient states he is all right and just wants to go home. Scaffold Worker told him that is the way everyone feels when they begin to feel better. She mentioned that we will let him go when he is well. She wished him rapid and thorough healing.
[2024-02-05 10:22] LABS: CHOLESTEROL RISK RATIO 2.6
[2024-02-05 11:36] VITALS: BP 155/87; PULSE 84; TEMP 97.9
--- NOTE | 2024-02-05 12:45 | NUR ---
Pt. sitting up in bed. Vitals stable. Pt. denies pain. Pt. has met discharge criteria. INT discontinued from rt. hand. Reviewed and given discharge packet. Pt. voices understanding. Pt. dressed and escorted out.
--- NOTE | 2024-02-05 14:10 | NUR ---
Social work student met with patient to discuss dicharge planning. Patient lives in [place] with Alesha (ph# [phone]) [address] Acosta for primary care. Patient gets medications from [facility] with no difficulties. Patient has medicare and [employer] for insurance. Patient uses walker, cane, VPAP, and 10L oxygen concentrator. Patient is independent with ADLS and drives himself to appointments. Patient has DPOA on file, which designates Alesha. Patient plans to return home at time of discharge. Discharge plan: home
--- NOTE | 2024-02-05 14:37 | NUR ---
Pt. tolerating po in take. Pt. denies pain. Pt. has met discharge criteria. INT's to lt.hand and rt. ac discontinued. Reviewed and gave pt. discharge packet. Pt. voices understanding. Pt. dressed and escorted out by wheelchair.
[2024-02-05] MEDS ORDERED: Atorvastatin 40 MG TAB PO SCH (21:00)
== END 2024-02-05 14:37 | disposition home or self-care (01) | DRG 922 ==
LOC: COL.ER 20:20 → ICU 23:24 → MEDICAL 02-05 01:36
PROVIDERS: Emergency Medicine; ADMIT Internal Medicine
DX: T67.01XA Heatstroke and sunstroke, initial encounter (principal); I21.A1 Myocardial infarction type 2; N18.6 End stage renal disease; G93.40 Encephalopathy, unspecified; J96.11 Chronic respiratory failure with hypoxia; I13.2 Hypertensive heart and chronic kidney disease with heart failure and with stage 5 chronic kidney disease, or end stage renal disease; G47.33 Obstructive sleep apnea (adult) (pediatric); E11.22 Type 2 diabetes mellitus with diabetic chronic kidney disease; Z20.822 Contact with and (suspected) exposure to COVID-19; I48.91 Unspecified atrial fibrillation; Z96.641 Presence of right artificial hip joint; I87.2 Venous insufficiency (chronic) (peripheral); J30.2 Other seasonal allergic rhinitis; E66.01 Morbid (severe) obesity due to excess calories; G47.00 Insomnia, unspecified; J44.9 Chronic obstructive pulmonary disease, unspecified; M19.90 Unspecified osteoarthritis, unspecified site; H26.9 Unspecified cataract; E78.5 Hyperlipidemia, unspecified; I50.9 Heart failure, unspecified; Z79.899 Other long term (current) drug therapy; Z99.81 Dependence on supplemental oxygen; Z99.2 Dependence on renal dialysis; Z90.49 Acquired absence of other specified parts of digestive tract; Z95.0 Presence of cardiac pacemaker; Z88.8 Allergy status to other drugs, medicaments and biological substances; Z91.048 Other nonmedicinal substance allergy status; Z95.818 Presence of other cardiac implants and grafts; Z79.01 Long term (current) use of anticoagulants; Z79.82 Long term (current) use of aspirin; Z79.890 Hormone replacement therapy; Z85.828 Personal history of other malignant neoplasm of skin; Z68.34 Body mass index [BMI] 34.0-34.9, adult
CPT/HCPCS: C9113; J7120

== ENCOUNTER 2024-02-11 17:13 | Emergency (ER) | payer MEDICARE, OTHER ==
[~2024-02-11] VITALS: Wt 113.2 kg
[2024-02-11 17:22] VITALS: TEMP 100.1
[2024-02-11 18:05] LABS: COLLECTION METHOD CLEAN CATCH
[2024-02-11 18:10] LABS: HEMATOCRIT 39.8 % (42.0-52.0); HEMOGLOBIN 12.5 g/dl (13.5-18.0); MEAN CELL VOLUME 90 fl (80.0-100.0); MEAN CORPUSCULAR HEMOGLOBIN 28 pg (27-31); MEAN CORPUSCULAR HGB CONC 31 g/dl (33.0-37.0); MEAN PLATELET VOLUME 9.3 fl (7.4-10.4); PLATELET COUNT 259 K/mm3 (130-400); RED BLOOD COUNT 4.41 M/mm3 (4.20-5.60); REDCELL DISTRIBUTION WIDTH-CV 16.3 % (11.5-14.5)
[2024-02-11 18:28] LABS: ALBUMIN 3.4 g/dL (3.4-4.8); BILIRUBIN,TOTAL 0.6 mg/dL (0.2-1.2); CALCIUM 9.2 mg/dL (8.4-10.2); CREATININE, serum 2.87 mg/dL (0.72-1.25); POTASSIUM 4.1 mEq/L (3.5-4.5); TOTAL PROTEIN 7.7 g/dl (6.2-8.1)
[2024-02-11] MEDS ORDERED: NS 1,000 ML IV ONE (18:30)
[2024-02-11 18:37] LABS: TROPONIN-I 0.041 ng/mL (0.00-0.033)
[2024-02-11 18:44] LABS: BAND 1 % (0-10); LYMPHOCYTE 2 % (20.0-51.0); NEUTROPHILS 96 % (42.0-75.2)
[2024-02-11 18:45] LABS: ANISOCYTOSIS 1+; HYPOCHROMIA 2+; PLATELET ESTIMATE NORMAL (NORMAL)
[2024-02-11 19:15] LABS: URINE COLOR Yellow (YELLOW)
[2024-02-11 19:16] LABS: PH 5.5 (5.0-8.5); URINE APPEARANCE Clear (CLEAR/HAZY); URINE BLOOD Negative (NEGATIVE); URINE GLUCOSE TRACE (NEGATIVE); URINE KETONE Negative (NEGATIVE); URINE NITRATE Negative (NEGATIVE); URINE PROTEIN(semi-quant) 3+ (NEGATIVE); URINE UROBILINOGEN 0.2 E.U/dL (0.2-1.0)
[2024-02-11] MEDS ORDERED: ZOFRAN ODT4 MG PO (19:20)
[2024-02-11 19:39] VITALS: BP 139/77; PULSE 65
[2024-02-11 19:40] LABS: AMORPHOUS CRYSTAL PRESENT (NOT PRESENT); MUCOUS PRESENT (NOT PRESENT); SQUAMOUS EPITHELIAL 0-2 /hpf (0-10); URINE BACTERIA NONE SEEN /hpf (NONE SEEN); URINE RBC 0-2 /hpf (0-2); URINE WBC 0-2 /hpf (0-2)
== END 2024-02-11 19:39 | disposition home or self-care (01) ==
LOC: COL.ER 17:13
PROVIDERS: Physician Assistant
DX: R11.0 Nausea (principal); I13.2 Hypertensive heart and chronic kidney disease with heart failure and with stage 5 chronic kidney disease, or end stage renal disease; E11.22 Type 2 diabetes mellitus with diabetic chronic kidney disease; N18.6 End stage renal disease; I50.9 Heart failure, unspecified; I48.91 Unspecified atrial fibrillation; Z99.2 Dependence on renal dialysis; Z79.01 Long term (current) use of anticoagulants; Z79.899 Other long term (current) drug therapy
CPT/HCPCS: J7030

== ENCOUNTER 2024-04-11 09:02 | Emergency (ER) | payer MEDICARE, OTHER ==
[~2024-04-11] VITALS: Ht 182.9 cm; Wt 113.6 kg
[2024-04-11 09:02] VITALS: TEMP 97.8
[~2024-04-11 09:02] MED LIST changes: +B-121000 MCG PO; +FARXIGA10 PO; -FARXIGA5 PO; +K-DUR 10 MEQ T10 MEQ PO; +OSCAL 500 TAB500 MG PO; +OZEMPIC1 MG/0.71 SQ; +SODIUM BICARBO650 MG PO; -SYNTHROID0.125 MG/T PO; +TESSALON P100 MG/CAP PO; +ZAROXOLYN 2.52.5 MG PO; -ZAROXOLYN5 MG PO; +ZOFRAN ODT4 MG PO; -ZYLOPRIM 100MG100 MG PO; +ZYLOPRIM 300MG300 MG PO
[2024-04-11] MEDS ORDERED: Morphine 4 MG/ML VIAL IV ONE (09:45)
[2024-04-11] MEDS ORDERED: Ondansetron 4 MG/2 ML VIAL IV ONE (09:45)
[2024-04-11 10:29] LABS: ALBUMIN 2.5 g/dL (3.4-4.8); BASO % 0.3 % (0.0-2.0); BILIRUBIN,TOTAL 0.5 mg/dL (0.2-1.2); CALCIUM 8.9 mg/dL (8.4-10.2); CREATININE, serum 4.66 mg/dL (0.72-1.25); EOS % 0.3 % (0.0-4.0); GRAN # 11.5 K/mm3 (1.4-6.5); GRAN % 85.9 % (42.2-75.2); HEMOGLOBIN 10.9 g/dl (13.5-18.0); LYMPH # 0.5 K/mm3 (1.2-3.4); LYMPH % 3.3 % (20.0-51.0); MEAN CELL VOLUME 99 fl (80.0-100.0); MEAN CORPUSCULAR HEMOGLOBIN 31 pg (27-31); MEAN CORPUSCULAR HGB CONC 32 g/dl (33.0-37.0); MONO # 1.3 K/mm3 (0.1-0.6); MONO % 9.7 % (1.7-9.3); PLATELET COUNT 214 K/mm3 (130-400); RED BLOOD COUNT 3.47 M/mm3 (4.20-5.60); REDCELL DISTRIBUTION WIDTH-CV 15.8 % (11.5-14.5); TOTAL PROTEIN 6.3 g/dl (6.2-8.1)
[2024-04-11 10:30] LABS: HEMATOCRIT 34.5 % (42.0-52.0)
[2024-04-11] MEDS ORDERED: PERCOCET 325 MG1 TA2 PO (13:08)
[2024-04-11] MEDS ORDERED: Morphine 4 MG/ML VIAL IV PRN (13:15)
[2024-04-11 13:25] VITALS: BP 150/87; PULSE 74
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
[2024-04-22] MEDS ORDERED: PHOS LO PO (11:27)
[2024-04-22] MEDS ORDERED: CENTRUM SILVER1 TAB PO (11:30)
[2024-04-22] MEDS ORDERED: SYNTHROID0.125 MG/T PO (11:38)
[2024-04-22] MEDS ORDERED: ELIQUIS 2.5 PO (11:43)
[2024-04-22] MEDS ORDERED: TRULICITY1.5 MG/0.5 SQ (11:43)
[2024-04-22] MEDS ORDERED: VITAMIN D31000 I1 PO (13:21)
[2024-04-22] MEDS ORDERED: ERGOCALCIFER50000 IU PO (13:23)
[2024-04-22] MEDS ORDERED: ZAROXOLYN 2.52.5 MG PO (13:27)
[2024-04-22] MEDS ORDERED: PROTONIX 40MG T40 MG PO (13:28)
[2024-04-22] MEDS ORDERED: FERRO-TIME325 MG PO (13:30)
[2024-04-22] MEDS ORDERED: VITAMIN B COMPL1 SGL PO (13:31)
[2024-04-22] MEDS ORDERED: VITAMINC500CH (13:32)
[2024-04-22] MEDS ORDERED: MIRALAX PA17 GM/Dose PO (13:32)
[2024-04-22] MEDS ORDERED: PROAIR HFA0.09 MG/AC IH (13:34)
[2024-04-22] MEDS ORDERED: COZAAR 50MG50 MG/TAB PO (13:34)
[2024-04-22] MEDS ORDERED: CATAPRES 0.1MG0.1 MG PO (13:35)
[2024-04-22] MEDS ORDERED: LODOCO0.5 MG PO (13:37)
[2024-04-22] MEDS ORDERED: WIXELA 100-501 EACH IH (13:37)
[2024-04-22] MEDS ORDERED: AMBIEN CR 12.12.5 MG PO (13:38)
[2024-04-22] MEDS ORDERED: ASTELIN NASAL S34 ML NS (13:39)
[2024-04-22] MEDS ORDERED: TRIAM OI 80 0.025 TOP (13:39)
[2024-04-22] MEDS ORDERED: TESSALON P100 MG/CAP PO (13:40)
[2024-04-22] MEDS ORDERED: IPRATROPIUM BROM3 M1 IH (13:40)
[2024-04-22] MEDS ORDERED: DELATESTRYL200 MG/ML IM (13:41)
[2024-04-22] MEDS ORDERED: [UNRECOGNIZED DRUG - OTHER] TOP (13:42)
[2024-04-22] MEDS ORDERED: TYLENOL 500MG500 MG PO (13:42)
[2024-04-22] MEDS ORDERED: PERCOCET 325 MG1 TA2 PO (13:43)
[2024-04-22] MEDS ORDERED: OXY IR5 MG PO (13:43)
[2024-04-22] MEDS ORDERED: SENNA-LAX8.6 MG PO (13:44)
[2024-04-23] MEDS ORDERED: FENTANYL 12MCG TD (13:12)
[2024-04-23] MEDS ORDERED: CEFTIN500 MG PO (13:12)
[2024-04-23] MEDS ORDERED: NOVOLOG 100U100 U/M1 SQ (13:16)
== END 2024-04-11 13:39 | disposition home or self-care (01) ==
LOC: COL.ER 09:02
PROVIDERS: Personal Emergency Response Attendant
DX: M25.551 Pain in right hip (principal)
CPT/HCPCS: J2270; J2405

== ENCOUNTER 2024-04-25 13:03 | Emergency (ER) | payer MEDICARE, OTHER ==
[~2024-04-25] VITALS: Ht 182.9 cm; Wt 113.6 kg
[~2024-04-25 13:03] MED LIST changes: +CEFTIN500 MG PO; +CENTRUM SILVER1 TAB PO; +DELATESTRYL200 MG/ML IM; +ELIQUIS 2.5 PO; +ERGOCALCIFER50000 IU PO; +FENTANYL 12MCG TD; +FERRO-TIME325 MG PO; +LODOCO0.5 MG PO; +MIRALAX PA17 GM/Dose PO; +NOVOLOG 100U100 U/M1 SQ; +OXY IR5 MG PO; +PERCOCET 325 MG1 TA2 PO; +PHOS LO PO; +PROAIR HFA0.09 MG/AC IH; +SENNA-LAX8.6 MG PO; +SYNTHROID0.125 MG/T PO; +TRIAM OI 80 0.025 TOP; +VITAMIN B COMPL1 SGL PO; +VITAMIN D31000 I1 PO; +VITAMINC500CH; +WIXELA 100-501 EACH IH; +[UNRECOGNIZED DRUG - OTHER] TOP
[2024-04-25 15:26] LABS: HEMOGLOBIN 11.3 g/dl (13.5-18.0); MEAN CELL VOLUME 99 fl (80.0-100.0); MEAN CORPUSCULAR HEMOGLOBIN 31 pg (27-31); MEAN CORPUSCULAR HGB CONC 31 g/dl (33.0-37.0); MEAN PLATELET VOLUME 9.9 fl (7.4-10.4); PLATELET COUNT 465 K/mm3 (130-400); RED BLOOD COUNT 3.67 M/mm3 (4.20-5.60); REDCELL DISTRIBUTION WIDTH-CV 15.6 % (11.5-14.5)
[2024-04-25 15:30] LABS: HEMATOCRIT 36.3 % (42.0-52.0)
[2024-04-25 15:52] LABS: ALBUMIN 2.2 g/dL (3.4-4.8); BILIRUBIN,TOTAL 0.5 mg/dL (0.2-1.2); CREATININE, serum 5.37 mg/dL (0.72-1.25); EOSINOPHIL 1 % (0-4); LYMPHOCYTE 4 % (20.0-51.0); NEUTROPHILS 87 % (42.0-75.2); POTASSIUM 4.5 mEq/L (3.5-4.5)
[2024-04-25 15:53] LABS: ANISOCYTOSIS 1+; HYPOCHROMIA 2+; PLATELET ESTIMATE INCREASED (NORMAL)
[2024-04-25 16:11] LABS: TSH w REFLEX 0.82 uIU/mL (0.350-4.940)
[2024-04-25 16:19] LABS: TROPONIN-I 0.09 ng/mL (0.00-0.033)
[2024-04-25 16:56] LABS: MAGNESIUM 2.5 mg/dL (1.6-2.6)
[2024-04-25] MEDS ORDERED: Ondansetron 4 MG/2 ML VIAL IV ONE (17:53)
[2024-04-25 18:38] LABS: COLLECTION METHOD CLEAN CATCH
[2024-04-25 18:44] LABS: PH 5.5 (5.0-8.5); URINE APPEARANCE CLEAR (CLEAR/HAZY); URINE BLOOD NEGATIVE (NEGATIVE); URINE COLOR YELLOW (YELLOW); URINE GLUCOSE 1+ (NEGATIVE); URINE KETONE NEGATIVE (NEGATIVE); URINE NITRATE NEGATIVE (NEGATIVE); URINE PROTEIN(semi-quant) 3+ (NEGATIVE); URINE UROBILINOGEN 0.2 E.U/dL (0.2-1.0)
[2024-04-25] MEDS ORDERED: cefTRIAXone 1 G in Water For Injection,Sterile 10 ML IV ONE (19:15)
[2024-04-25] MEDS ORDERED: Morphine 4 MG/ML VIAL IV ONE (21:15)
[2024-04-26] MEDS ORDERED: Morphine 4 MG/ML VIAL IV PRN (01:30)
[2024-04-26 02:56] LABS: CALCIUM 9.2 mg/dL (8.4-10.2); CREATININE, serum 5.18 mg/dL (0.72-1.25); POTASSIUM 4.7 mEq/L (3.5-4.5)
[2024-04-26 04:00] VITALS: TEMP 98.5
[2024-04-26 11:45] VITALS: BP 135/80; PULSE 72
[2024-04-28 10:02] LABS: TOTAL PROTEIN 8.1 g/dl (6.2-8.1)
== END 2024-04-26 11:45 | disposition short-term general hospital (02) ==
LOC: COL.ER 13:03
PROVIDERS: Emergency Medicine
DX: I63.9 Cerebral infarction, unspecified (principal); N18.6 End stage renal disease; R41.82 Altered mental status, unspecified; Z99.2 Dependence on renal dialysis
CPT/HCPCS: J0696; J2270; J2405